=== PATIENT | female | born 1945 | race Two or more races ===

== ENCOUNTER 2017-11-27 08:15 | Outpatient (CLI) | payer OTHER | END 2017-11-27 08:26 | disposition home or self-care (01) | LOC: MAMO-SONO 08:15 | DX: Z12.31 Encounter for screening mammogram for malignant neoplasm of breast (principal); Z87.898 Personal history of other specified conditions; I10 Essential (primary) hypertension; M54.5 Low back pain; F41.9 Anxiety disorder, unspecified; M15.9 Polyosteoarthritis, unspecified; I73.89 Other specified peripheral vascular diseases; M79.7 Fibromyalgia; M81.0 Age-related osteoporosis without current pathological fracture ==

== ENCOUNTER 2017-12-25 09:15 | Outpatient (CLI) | payer OTHER | END 2017-12-25 15:40 | disposition home or self-care (01) | LOC: TOM 09:15 | DX: K87 Disorders of gallbladder, biliary tract and pancreas in diseases classified elsewhere (principal) ==

== ENCOUNTER 2018-04-03 07:44 | Outpatient (CLI) | payer OTHER | END 2018-04-03 15:53 | disposition home or self-care (01) | LOC: RAD 07:44 | DX: Z01.818 Encounter for other preprocedural examination (principal) ==

== ENCOUNTER 2019-11-13 10:25 | Outpatient (CLI) | payer OTHER | END 2019-11-13 11:22 | disposition home or self-care (01) | LOC: NUCLEAR 10:25 | DX: M81.0 Age-related osteoporosis without current pathological fracture (principal); I11.9 Hypertensive heart disease without heart failure; E03.8 Other specified hypothyroidism; F41.8 Other specified anxiety disorders; M79.7 Fibromyalgia; I73.9 Peripheral vascular disease, unspecified; M54.5 Low back pain; N60.11 Diffuse cystic mastopathy of right breast; N60.12 Diffuse cystic mastopathy of left breast; H52.4 Presbyopia; E04.1 Nontoxic single thyroid nodule; D56.3 Thalassemia minor ==

== ENCOUNTER 2019-11-13 12:36 | Outpatient (CLI) | payer OTHER | END 2019-11-13 12:44 | disposition home or self-care (01) | LOC: MAMO-SONO 12:36 | DX: Z12.31 Encounter for screening mammogram for malignant neoplasm of breast (principal); Z13.820 Encounter for screening for osteoporosis; Z87.898 Personal history of other specified conditions; I11.9 Hypertensive heart disease without heart failure; E03.8 Other specified hypothyroidism; F41.8 Other specified anxiety disorders; M79.7 Fibromyalgia; M81.0 Age-related osteoporosis without current pathological fracture; I73.89 Other specified peripheral vascular diseases; M15.8 Other polyosteoarthritis; M54.5 Low back pain; N60.19 Diffuse cystic mastopathy of unspecified breast; H52.4 Presbyopia; E04.1 Nontoxic single thyroid nodule; D56.3 Thalassemia minor ==

== ENCOUNTER 2020-05-31 09:05 | Outpatient (CLI) | payer OTHER | END 2020-05-31 09:12 | disposition home or self-care (01) | LOC: TOM 09:05 | PROVIDERS: ATTEND Internal Medicine Gastroenterology | DX: R10.13 Epigastric pain (principal) ==

== ENCOUNTER → 2020-12-20 | Outpatient (CLI) | payer OTHER | END | disposition home or self-care (01) | LOC: MAMO-SONO 10:39 | PROVIDERS: ATTEND Emergency Medicine Pediatric Emergency Medicine | DX: Z12.31 Encounter for screening mammogram for malignant neoplasm of breast (principal); E03.8 Other specified hypothyroidism; F41.8 Other specified anxiety disorders; M79.7 Fibromyalgia; M81.0 Age-related osteoporosis without current pathological fracture; I73.89 Other specified peripheral vascular diseases; M15.8 Other polyosteoarthritis; M54.5 Low back pain; H52.4 Presbyopia; E04.1 Nontoxic single thyroid nodule; D56.3 Thalassemia minor; E55.9 Vitamin D deficiency, unspecified; N87.1 Moderate cervical dysplasia ==

== ENCOUNTER 2021-04-21 07:08 | Outpatient (CLI) | payer OTHER | END 2021-04-21 07:14 | disposition home or self-care (01) | LOC: SONOGRAMA 07:08 → MAMO-SONO 07:15 | PROVIDERS: ATTEND Internal Medicine | DX: N23 Unspecified renal colic (principal); F41.8 Other specified anxiety disorders; M81.0 Age-related osteoporosis without current pathological fracture; M79.7 Fibromyalgia; I73.89 Other specified peripheral vascular diseases; M15.8 Other polyosteoarthritis; E03.8 Other specified hypothyroidism; M54.5 Low back pain; H52.4 Presbyopia; E04.1 Nontoxic single thyroid nodule; D56.3 Thalassemia minor; E55.9 Vitamin D deficiency, unspecified ==